=== PATIENT | male | born 2000 | race Caucasian/White ===

== ENCOUNTER 2025-05-24 10:22 | Emergency (ER) | payer OTHER ==
[2025-05-24] MEDS ORDERED: ONDANSETRON 4 MG/2 ML VIAL ONE (11:48)
[2025-05-24] MEDS ORDERED: FAMOTIDINE 20 MG/50 ML IVPB 20 MG/50 ML MG IVPB ONE (11:48)
[2025-05-24] MEDS ORDERED: ACETAMINOPHEN INJECTION 100 ML ONE (11:48)
[2025-05-24] MEDS: ONDANSETRON 4 MG/2 ML VIAL IVPUSH ONE (12:06)
[2025-05-24] MEDS: ACETAMINOPHEN 1000 MG/100 ML BAG IVPB ONE (12:07)
[2025-05-24] MEDS: FAMOTIDINE 20 MG/50 ML IVPB 20 MG/50 ML MG IVPB ONE (12:07)
[2025-05-24] MEDS: SODIUM CHLORIDE 0.9% 500 ML INFUS.BAG IV ONE (12:08)
[2025-05-24 12:22] LABS: ABSOLUTE IMMATURE GRANULOCYTES 0.10 x10^3/uL (0.0-0.031); BASOPHILS # 0.03 x10^3/uL (0.01-0.08); EOSINOPHIL % 0.1 % (0.8-7.0); EOSINOPHILS # 0.01 x10^3/uL (0.04-0.54); MCHC 33.8 g/dl (32.3-36.5); MEAN CELL VOLUME 81.2 fl (79.0-92.2); MEAN PLT VOLUME 10.5 fl (9.4-12.4); MONOCYTE # 0.74 x10^3/uL (0.30-0.82); MONOCYTE % 4.8 % (5.3-12.2); RDW 12.3 % (11.9-15.3)
[2025-05-24 12:58] LABS: CO2 26.0 mmol/L (21-32); GLUCOSE,RANDOM 90.0 mg/dL (74-106)
[2025-05-24 12:59] VITALS: BMI 22.0
[2025-05-24 13:00] LABS: CREATININE 0.8 mg/dL (0.55-1.3)
[2025-05-24 13:01] LABS: SGOT/AST 11.0 U/L (15-37); SGPT/ALT 14.0 U/L (13-61)
[2025-05-24 13:02] LABS: TOT PROT 7.2 g/dl (6.4-8.2)
[2025-05-24 13:04] LABS: ALK PHOS 66.0 U/L (45-117)
[2025-05-24 14:16] VITALS: BP 111/60; PULSE 75; RESP 18; TEMP 98.9
[2025-05-24 16:19] LABS: HCV DIAGNOSTIC IN-HOUSE W/RFLX NON-REACTIVE (NONREACTIVE)
[2025-05-24 22:16] LABS: HIV INTERPRETATION NEGATIVE (NEGATIVE)
== END 2025-05-24 14:18 | disposition home or self-care (01) ==
LOC: JER 10:22
PROC: 3E033GC Introduction of Other Therapeutic Substance into Peripheral Vein, Percutaneous Approach (ICD-10-PCS; principal; 2025-05-24)
PROC: 3E033NZ Introduction of Analgesics, Hypnotics, Sedatives into Peripheral Vein, Percutaneous Approach (ICD-10-PCS; 2025-05-24)
PROC: 3E033GC Introduction of Other Therapeutic Substance into Peripheral Vein, Percutaneous Approach (ICD-10-PCS; 2025-05-24)
DX: R11.2 Nausea with vomiting, unspecified (principal); R10.13 Epigastric pain; R50.9 Fever, unspecified; B34.9 Viral infection, unspecified; M79.10 Myalgia, unspecified site; R51.9 Headache, unspecified
CPT/HCPCS: 36415; 71046-TC-FY; 76705-TC; 80053; 83690; 85025; 86803; 87389; 96365; 96375; 99285-25